=== PATIENT | female | born 1995 | race Two or more races ===

== ENCOUNTER 2019-09-01 17:40 | Emergency (ER) | payer MEDICAID, OTHER ==
[~2019-09-01] VITALS: Ht 157.5 cm; Wt 90.7 kg
[2019-09-01 18:39] LABS: Basophils # (auto) 0 uL; Eosinophils # (auto) 0.4 uL; Monocytes # (auto) 0.7 uL
[2019-09-01 18:41] LABS: Basophils % (auto) 0.2 % (0.0-2.0); Eosinophils % (auto) 3.9 % (0.0-7.0); Hematocrit 37.2 % (36.0-46.0); Hemoglobin 12.4 g/dL (12.2-16.2); Lymphocytes % (auto) 27.3 % (10.0-50.0); Mean Corpuscular Hemoglobin 26.4 pg (28.0-32.0); Mean Corpuscular Hgb Conc. 33.4 g/dL (32.0-36.0); Monocytes % (auto) 6.2 % (0.0-12.0); Neutrophils # (auto) 6.8 uL; Neutrophils % (auto) 62.4 % (37.0-80.0); Platelet Count (auto) 248 10^3/uL (140-450); Red Blood Cells 4.71 10^6/uL (4.0-5.20)
[2019-09-01 23:30] VITALS: BP 120/82
== END 2019-09-01 23:52 | disposition home or self-care (01) ==
LOC: ER 17:40
DX: O20.0 Threatened abortion (principal); Z3A.01 Less than 8 weeks gestation of pregnancy
CPT/HCPCS: 36415; 76801; 84702; 85025

== ENCOUNTER 2019-09-03 11:56 | Emergency (ER) | payer MEDICAID ==
[~2019-09-03] VITALS: Ht 157.5 cm; Wt 90.7 kg
[2019-09-03 16:46] VITALS: BP 119/64
== END 2019-09-03 17:24 | disposition home or self-care (01) ==
LOC: ER 11:56
DX: O03.9 Complete or unspecified spontaneous abortion without complication (principal); F17.210 Nicotine dependence, cigarettes, uncomplicated; Z3A.08 8 weeks gestation of pregnancy
CPT/HCPCS: 36415; 84702